=== PATIENT | male | born 1965 | race Asian ===

== ENCOUNTER → 2016-12-16 | Outpatient (CLI) | payer BC, OTHER ==
--- NOTE | 2016-12-16 08:40 | DIAGNOSTIC IMAGING REPORT ---
ABDOMEN LIMITED (US) CLINICAL HISTORY: 51 years-old Male presenting with RUQ PAIN. TECHNIQUE: Real-time grayscale and limited color Doppler ultrasound imaging of the abdomen limited to the right upper quadrant was performed. COMPARISON: None. FINDINGS: Pancreas: Visualized portions of the pancreatic head normal. Remainder of posterior due to overlying bowel gas. Liver: Mildly hyperechogenic parenchyma, although the right hemidiaphragm remains visible, likely indicating mild steatosis. The liver measures 16.3 cm in maximal sagittal dimension. No sonographic evidence of hepatic mass. Main portal vein patent with normal directional flow. Biliary: No intrahepatic biliary ductal dilatation. Common bile duct measures up to 4 mm in diameter. Gallbladder: No evidence of gallstones, gallbladder wall thickening, gallbladder distention, or pericholecystic fluid or inflammatory change. Right kidney: Normal in appearance and size, measuring 10.0 cm. No hydronephrosis. Ascites: None. IMPRESSION: 1. Suggestion of hepatic steatosis. 2. No cholelithiasis or cholecystitis. Electronically signed by: Roland Guthrie M.D. 12/16/2016 8:39 AM Dictated Date/Time: 12/16/2016 8:37 AM
== END | disposition home or self-care (01) ==
LOC: C.ULTR 08:07
PROVIDERS: ATTEND Family Medicine
DX: R10.11 Right upper quadrant pain (principal)

== ENCOUNTER → 2017-04-03 | Outpatient (CLI) | payer BC, OTHER | END | disposition home or self-care (01) | LOC: C.LAB 19:21 | PROVIDERS: ATTEND Family Medicine | DX: K29.70 Gastritis, unspecified, without bleeding (principal) ==